=== PATIENT | female | born 1950 | race Caucasian/White ===

== ENCOUNTER → 2018-06-05 | Outpatient (CLI) | payer MEDICARE, OTHER ==
[~2018-06-05] MED LIST: ACET-3017 PO; ALI300PT PO; ALPH300C2 PO; ASPI-274 PO; ASPI-715 PO; CA C1TAB85 PO; CALC-547 PO; CALC200T27 PO; CRAN250T PO; CRAN500C10 PO; CRAN500C11 PO; CYCL-332 PO; DAR100 PO; ESOM40CA42 PO; ESTR0.5T16 TD; ESTR1PAT64 TOP; EZET1TAB55 PO; FEN145 PO; FEXO180T74 PO; FEXO30TA36 PO; FISH OIL1 CAP PO; FUR20 PO; HCTZ25 PO; HYDR-3087 PO; HYDR-3140 PO; HYDR12.558 PO; IBU600 PO; LEV500 PO; LIS20 PO; LOR5 PO; LOR5/325 PO; MAGNESIUM; MEGA RED PO; MELO-205 PO; METH-271 PO; MOMR; MON10 PO; MONT10TA22 PO; MULT-1085 PO; MULT-1319 PO; NEB5 PO; OCU PO; OLME1TAB69; OLME1TAB73 PO; OLME40TA17 PO; PAN40 PO; PANT40TA65 PO; TRILI135PT PO; VIT B12; VITA-139 PO; VITE400 PO; [UNRECOGNIZED DRUG - CODE] PO; [UNRECOGNIZED DRUG - CODE] PO; [UNRECOGNIZED DRUG - CODE] PO; [UNRECOGNIZED DRUG - CODE] PO
--- NOTE | 2018-06-05 18:15 | RADIOLOGY IMAGING REPORT ---
FAC[place] [facility] [place]IENT NAME: HIREN BROWN : [id number] MR: [id number] V: [id number] EXAM DATE: ORDERING PHYSICIAN: NEIL LEGER TECHNOLOGIST: Nataliia Carcamo PROCEDURE:BILATERAL DIGITAL SCREENING MAMMOGRAM WITH CAD ASSISTED INTERPRETATION & 3D TOMOSYNTHESIS COMPARISON:Prior mammograms 03/17/17 back to 12/20/11. INDICATIONS:SCREENING FINDINGS: The breast parenchyma is predominantly fatty replaced. In the Left breast there is a 5mm lobulated nodule in the lateral retroareolar area which is unchanged as far back as 2012 and is not visible in the CC projection. In the MLO projection there is a similar appearing circumscribed 5mm lobulated nodule located in the anterior inferior Left breast unchanged from 2012. The corrosponding CC view is unremarkable. These likely represent small cyst clusters but in any event 6 year stability infers benignity. No developing masses or recent microcalcifications. DIAGNOSTIC CATEGORY 2--BENIGN FINDING. RECOMMENDATIONS: ROUTINE MAMMOGRAM AND CLINICAL EVALUATION. IMPRESSION: BIRADS 2: Benign finding. Routine annual mammographic screening. Dictated by: Amor Lord M.D. on 06/05/2018 at 11:06 Transcribed by: CARINA on 06/05/2018 at 11:29 Approved by: Amor Lord M.D. on 06/05/2018 at 18:14 [facility]
== END ==
LOC: MAMO 01:32
PROVIDERS: ATTEND Family Medicine
DX: Z12.31 Encounter for screening mammogram for malignant neoplasm of breast (principal)
CPT/HCPCS: 77063; 77067

== ENCOUNTER → 2019-03-17 | Outpatient (CLI) | payer MEDICARE, OTHER | LOC: LAB 15:26 | PROVIDERS: ATTEND Urology | DX: N39.0 Urinary tract infection, site not specified (principal); B96.20 Unspecified Escherichia coli [E. coli] as the cause of diseases classified elsewhere | CPT/HCPCS: 81001; 87077; 87088; 87186 ==

== ENCOUNTER → 2019-05-06 | Outpatient (REF) | payer MEDICARE, OTHER | LOC: ZZSENDIN 12:58 | PROVIDERS: ATTEND Urology | DX: N39.0 Urinary tract infection, site not specified (principal) | CPT/HCPCS: 81001; 87088 ==

== ENCOUNTER → 2019-05-19 | Outpatient (REF) | payer MEDICARE, OTHER | LOC: ZZSTITCHES 09:32 | PROVIDERS: ATTEND Physician Assistant | DX: J02.8 Acute pharyngitis due to other specified organisms (principal); R09.82 Postnasal drip | CPT/HCPCS: 87070 ==